=== PATIENT | female | born 1955 | race Caucasian/White ===

== ENCOUNTER 2018-12-01 08:41 | Emergency (ER) | payer BC ==
[2018-12-01 09:29] LABS: ABS Basophils 0.1 10^3/ul (0-0.2); ABS Eosinophils 0.1 10^3/ul (0-0.6); ABS Lymphocytes 2.2 10^3/ul (1.0-4.8); ABS Monocytes 0.5 10^3/ul (0-0.8); Eosinophil % 1.6 %; Hematocrit 37 % (35-47); Hemoglobin 12.4 g/dL (12.0-16.0); Lymphocyte % 32.1 %; Mean Corpuscular HGB Conc 34 g/dL (31-36); Mean Corpuscular Hemoglobin 30 pg (27-31); Mean Corpuscular Volume 90 fL (80-97); Mean Platelet Volume 7.8 fL (7.4-10.4); Nucleated Red Blood Cells % 0.1; Platelet Count 325 10^3/uL (150-450); Red Blood Count 4.09 10^6 /uL (3.70-4.87); Red Cell Distribution Width 14 % (10-15); White Blood Count 6.9 10^3/uL (3.5-10.8)
[2018-12-01 09:34] LABS: INR 0.91 (0.82-1.09)
[2018-12-01 09:48] LABS: Albumin 4.3 g/dL (3.2-5.2); Albumin/Globulin Ratio 1.7 (1-3); Calcium 9.1 mg/dL (8.6-10.3); EGFR African American 93.3 (>60); EGFR Non-African American 77.1 (>60); Globulin 2.5 g/dL (2-4); Potassium 3.7 mmol/L (3.5-5.0); Total Bilirubin 0.3 mg/dL (0.2-1.0); Total Protein 6.8 g/dL (6.4-8.9)
--- NOTE | 2018-12-01 09:57 | ED ---
Dizziness - HPI Summary HPI Summary: This patient is a 63 year old F presenting to [facility] presents with a chief complaint of dizziness since 3 days ago. The CC is described as spinning, off balance, and lightheaded that is gradually getting worse with episodes lasting a few seconds. Patient reports this never occurred before. Patient thinks dizziness is waking her up as she is waking up at 0430 with no known cause. Patient reports she was constantly dizzy yesterday morning, 11/30/18, but was ok the majority of the day. Symptoms aggravated by laying back far (more dizzy). Symptoms alleviated by nothing. Patient reports numbness in whole tongue (noticed here but now resolved) and nausea. Patient denies MOORE, tinnitus. Hx: Hypertension, hypercholesterolemia (triglycerides) - History Of Current Complaint Chief Complaint: EDDizziness Stated Complaint: NOT FEELING WELL / DIZZYNESS PER PT Time Seen by Provider: 12/01/18 09:10 Hx Obtained From: Patient Onset/Duration: Still Present Timing: Intermittent Episode Lasting Character: Head Spinning, Lightheaded, Dizzy Aggravating Factor(s): Other - laying down too far Alleviating Factor(s): Nothing Associated Signs And Symptoms: Positive: Nausea, Other: - numbness in tongue. Negative: Tinnitus - Allergies/Home Medications Allergies/Adverse Reactions: Allergies Allergy/AdvReac Type Severity Reaction Status Date / Time acetaminophen [From Percocet] Allergy GI Upset Verified 12/01/18 11:06 moxifloxacin [From Avelox] Allergy Anaphylatic Verified 12/01/18 11:06 Shock oxycodone [From Percocet] Allergy GI Upset Verified 12/01/18 11:06 Penicillins Allergy Rash Verified 12/01/18 11:06 Sulfa (Sulfonamide Allergy Rash Verified 12/01/18 11:06 Antibiotics) PMH/Surg Hx/FS Hx/Imm Hx Endocrine/Hematology History: Reports: Hx Diabetes Cardiovascular History: Reports: Hx Hypercholesterolemia, Hx Hypertension Sensory History: Reports: Hx Contacts or Glasses Opthamlomology History: Reports: Hx Contacts or Glasses - Surgical History Surgery Procedure, Year, and Place: shoulder (left and right), tonsillectomy, carpal tunnel, 3 x c-sections Infectious Disease History: No Infectious Disease History: Denies: Traveled Outside the [place] in Last 30 Days - Family History Known Family History: Positive: Cardiac Disease, Hypertension, Renal Disease - Social History Alcohol Use: Occasionally Substance Use Type: Reports: None Smoking Status (MU): Light Every Day Tobacco Smoker Review of Systems Positive: Other - denies tinnitus Positive: Nausea Neurological: Other - lightheaded, dizziness Positive: Numbness - tongue. Negative: Headache All Other Systems Reviewed And Are Negative: Yes Physical Exam - Summary Physical Exam Summary: Constitutional: Well-developed, Well-nourished, Alert. (-) Distressed Skin: Warm, Dry HENT: Normocephalic; Atraumatic Eyes: Conjunctiva normal Neck: Musculoskeletal ROM normal neck. (-) JVD, (-) Nuchal rigidity Cardio: Rhythm regular, rate normal, Heart sounds normal; Intact distal pulses; Radial pulses are 2+ and symmetric. (-) Murmur Pulmonary/Chest wall: Effort normal. (-) Respiratory distress, (-) Wheezes, (-) Rales Abd: Soft. (-) Tenderness, (-) Distension, (-) Guarding, (-) Rebound Musculoskeletal: (-) Edema Lymph: (-) Cervical adenopathy Neuro: Alert, PERRL, Oriented x3, Strength normal, Cranial nerves II-XII are grossly intact. SILT, Strength 5/5 BUE and BLE, (-) Dysmetria, (-) Nystagmus, ambulates w steady gait but occasionally leans to L Psych: Mood and affect Normal Triage Information Reviewed: Yes Vital Signs On Initial Exam: Initial Vitals Temp Pulse Resp BP Pulse Ox 98.0 F 92 16 178/103 98 12/01/18 08:45 12/01/18 08:45 12/01/18 08:45 12/01/18 08:45 12/01/18 08:45 Vital Signs Reviewed: Yes Diagnostics - Vital Signs Vital Signs Temp Pulse Resp BP Pulse Ox 12/01/18 08:45 98.0 F 92 16 178/103 98 - Laboratory Lab Results: Lab Results 12/01/18 12/01/18 12/01/18 Range/Units 09:22 09:22 09:22 WBC 6.9 (3.5-10.8) 10^3/uL RBC 4.09 (3.70-4.87) 10^6 /uL Hgb 12.4 (12.0-16.0) g/dL Hct 37 (35-47) % MCV 90 (80-97) fL MCH 30 (27-31) pg MCHC 34 (31-36) g/dL RDW 14 (10-15) % Plt Count 325 (150-450) 10^3/uL MPV 7.8 (7.4-10.4) fL Neut % (Auto) 57.7 % Lymph % (Auto) 32.1 % [place] % (Auto) 7.8 % Eos % (Auto) 1.6 % Baso % (Auto) 0.8 % Absolute Neuts (auto) 4.0 (1.5-7.7) 10^3/ul Absolute Lymphs (auto) 2.2 (1.0-4.8) 10^3/ul Absolute Monos (auto) 0.5 (0-0.8) 10^3/ul Absolute Eos (auto) 0.1 (0-0.6) 10^3/ul Absolute Basos (auto) 0.1 (0-0.2) 10^3/ul Absolute Nucleated RBC 0.0 10^3/ul Nucleated RBC % 0.1 INR (Anticoag Therapy) 0.91 (0.82-1.09) Sodium 138 (135-145) mmol/L Potassium 3.7 (3.5-5.0) mmol/L Chloride 105 (101-111) mmol/L Carbon Dioxide 25 (22-32) mmol/L Anion Gap 8 (2-11) mmol/L BUN 19 (6-24) mg/dL Creatinine 0.76 (0.51-0.95) mg/dL Est GFR ( Amer) 93.3 (>60) Est GFR (Non-Af Amer) 77.1 (>60) BUN/Creatinine Ratio 25.0 H (8-20) Glucose 109 H (70-100) mg/dL Calcium 9.1 (8.6-10.3) mg/dL Total Bilirubin 0.30 (0.2-1.0) mg/dL AST 17 (13-39) U/L ALT 20 (7-52) U/L Alkaline Phosphatase 64 (34-104) U/L Total Protein 6.8 (6.4-8.9) g/dL Albumin 4.3 (3.2-5.2) g/dL Globulin 2.5 (2-4) g/dL Albumin/Globulin Ratio 1.7 (1-3) Result Diagrams: 12/01/18 09:22 12/01/18 09:22 Lab Statement: Any lab studies that have been ordered have been reviewed, and results considered in the medical decision making process. - CT Brain CT CT Interpretation Completed By: Radiologist Summary of CT Findings: Per radiologist,. NO EVIDENCE FOR ACUTE INTRACRANIAL ABNORMALITY. ED physician has reviewed this imaging report. Head CTA CT Interpretation Completed By: Radiologist Summary of CT Findings: Per radiologist,. 1. NO EVIDENCE FOR HEMODYNAMICALLY SIGNIFICANT CAROTID STENOSIS. INTRACRANIAL THROMBUS. 2. NO EVIDENCE FOR LARGE VESSEL. CPT II Codes: 3100F. ED physician has reviewed this imaging report. - EKG 0920 Cardiac Rate: NL - 79 BPM Summary of EKG Findings: 79 BPM T-wave inversion in lead 3. No prior. Re-Evaluation - Re-Evaluation First Eval Re-Evaluation Time: 10:38 Comment: head CT is negative, will try meclizine. Second Eval Re-Evaluation Time: 12:45 Change: Improved - CTA neg, patient already on baby aspirin. Will discharge to home Dizzy Course/Dx - Course Course Of Treatment: 63 y/o F with HLD and HTN p/w vertigo and mild unsteady gait. Dizziness ddx: most likely BPPV - positional and lasting seconds. Differential diagnosis includes: Cardiac causes - will check EKG. Electrolyte disturbances - will check CMP. Anemia - will check CBC. Posterior stroke/tia - will get CT head however suspect more likely peripheral. Vertigo: differential includes Menniere's - no tinnitis, not lasting hours, labyrinthitis - no h/o infectious symptoms, no tinnitus - Diagnoses Provider Diagnoses: Vertigo - Provider Notifications Discussed Care Of Patient With: Alejandro Golden Time Discussed With Above Provider: 11:36 Instructed by Provider To: Other - recommends having CTA done and if negative pt can go home with baby aspirin Discharge ED - Sign-Out/Discharge Documenting (check all that apply): Patient Departure - discharge Patient Received Moderate/Deep Sedation with Procedure: No - Discharge Plan Condition: Stable Disposition: HOME Prescriptions: Meclizine TAB* [Antivert 12.5 TAB*] 25 mg PO TID 7 Days #20 tab Patient Education Materials: Benign Paroxysmal Positional Vertigo (ED) Referrals: Alejandro Golden MD [Medical Doctor] - 2 Days Additional Instructions: You were seen in the emergency department for vertigo. You likely have some and call benign paroxysmal positional vertigo. Her head CT and CTA were negative. You can try meclizine at home for symptomatic contro. You can also try something called the Chad maneuver If any studies were not completed at the time of discharge you will be called with the relevant results. Please follow up with your primary care doctor in next 2-3 days and return to emergency department for worsening or concerning symptoms. It was a pleasure taking care of you today. - Billing Disposition and Condition Condition: STABLE Disposition: Home - Attestation Statements Document Initiated by Sanjuanita: Yes Documenting Scribe: Sharon Waters Provider For Whom Sanjuanita is Documenting (Include Credential): Dr. Theron Schilling MD Scribe Attestation: Sharon Archuleta, scribed for Dr. Theron Schilling MD on 12/01/18 at 1320. Scribe Documentation Reviewed: Yes Provider Attestation: The documentation as recorded by the Sharon jenkins accurately reflects the service I personally performed and the decisions made by me, Dr. Theron Schilling MD Status of Scribe Document: Viewed
[2018-12-01] MEDS ORDERED: Meclizine TAB* 12.5 MG PO ONE (10:28)
[2018-12-01] MEDS ORDERED: Iodixanol* (CONTRAST) 320 MG/ML 100 ML SDV IV ONE (11:53)
[2018-12-01 13:24] VITALS: BP 134/91
== END 2018-12-01 13:22 | disposition home or self-care (01) ==
LOC: ED 08:41
DX: R42 Dizziness and giddiness (principal); R11.0 Nausea; E11.9 Type 2 diabetes mellitus without complications; R20.0 Anesthesia of skin; E78.00 Pure hypercholesterolemia, unspecified; I10 Essential (primary) hypertension; E78.5 Hyperlipidemia, unspecified; F17.210 Nicotine dependence, cigarettes, uncomplicated; Z88.0 Allergy status to penicillin; Z88.2 Allergy status to sulfonamides
CPT/HCPCS: 36415; 70450; 70496; 70498; 80053; 85025; 85610; 93005; 99283; A9270-GY; Q9967